=== PATIENT | female | born 1980 ===

== ENCOUNTER → 2018-02-18 11:17 | Day surgery (SDC) | payer OTHER ==
[~2018-02-18 11:17] MED LIST: Acetaminophen IV 1GM/100ML * 1,000 MG/100 ML VIAL IVPB ONE; Acetaminophen IV 1GM/100ML * 100 ML ONE; Buffered Lidocaine 0.9% SYRIN* 5 ML/SYR SYRINGE INTRADERM ONE; Bupivacaine 0.5% W/EPI SDV* 30 ML VIAL ONE; Dexamethasone IV* 4 MG/ML 1 ML (4 MG) ONE; DiMENhydriNATE IV* 50 MG/ML VIAL IV PUSH PRN; Famotidine IV* 10 MG/ML 2 ML (20 mg) IV ONE; Famotidine IV* 10 MG/ML 2 ML (20 mg) ONE; HYDROmorphone INJ1* 1 MG/ML SYRINGE IV PRN; Ketorolac INJ* 30 MG/ML 1 ML VIAL ONE; Lactated Ringers 1000 ML Bag* 1,000 ML IV SCH; Midazolam* 1 MG/ML 5 ML VIAL (5 MG) ONE; Naloxone* 0.4 MG/ML 1 ML VIAL IV PRN; Ondansetron INJ* 2 MG/ML VIAL ONE; Propofol* 10 MG/ML 20 ML BTL ONE; fentaNYL* 50 MCG/ML 2 ML VIAL (100 MCG VIAL) ONE
[2018-02-18 15:11] VITALS: BP 119/86
--- NOTE | 2018-02-18 21:35 | OP ---
DATE OF OPERATION: 02/18/18 - [facility] DATE OF : 76 SURGEON: Kenneth Jack MD TOOLROOM KEEPER: None. ANESTHESIA: General endotracheal tube. PRE-OP DIAGNOSIS: Desires permanent sterilization. POST-OP DIAGNOSES: 1. Desires permanent sterilization. 2. Abdominal adhesion. OPERATIVE PROCEDURE: Includes laparoscopic tubal interruption. FINDINGS: On laparoscopy, the anterior bladder flap appeared normal. The cul- de- sac appeared normal. Both tubes and ovaries appeared normal. There was an adhesion of the epiploica of the small bowel to the anterior abdominal wall on the right side in a small area. Liver surface was smooth. ESTIMATED BLOOD LOSS: Minimal. DESCRIPTION OF PROCEDURE: The patient was identified, procedure identified as a laparoscopic tubal interruption. The patient was taken to the operating room , prepped and draped in usual fashion in the dorsal lithotomy position under general anesthesia. A small infraumbilical incision was made and a Veress needle was inserted through this. The abdomen was insufflated to 15 mmHg. The Veress needle was removed and the trocar was inserted. The trocar was removed and the sheath and laparoscope were inserted. The above findings were noted. A second incision was made 2 cm above the pubic symphysis in the midline and a second trocar was inserted under direct visualization. The bipolar cautery was inserted through this incision and the right fallopian tube was grasped in its mid portion, followed out to its fimbriated ends and fulgurated x4. Same procedure was carried out on the left after following it out to its fimbriated ends. Good hemostasis was verified. All instruments removed from the abdomen. The abdomen was deflated of CO2. The skin was closed using skin glue. The sponge and sponge stick were removed from the vagina and the patient returned to recovery room in stable condition. [id number]/[facility] #: [id number] [facility]ITALWarren
== END | disposition home or self-care (01) ==
LOC: OR 11:17
PROVIDERS: ATTEND Obstetrics & Gynecology
DX: Z30.2 Encounter for sterilization (principal); K66.0 Peritoneal adhesions (postprocedural) (postinfection); I10 Essential (primary) hypertension; J45.909 Unspecified asthma, uncomplicated; Z87.891 Personal history of nicotine dependence
CPT/HCPCS: 81025; J1100; J1885; J2250; J2405; J2704; J3010